=== PATIENT | male | born 1945 | race Asian ===

== ENCOUNTER 2019-12-01 11:55 | Inpatient (IN) | payer MEDICAID ==
[~2019-12-01] VITALS: Ht 160 cm; Wt 59.1 kg
[2019-12-01] MEDS ORDERED: 0.9% SODIUM CHLORIDE 10 ML SYRINGE IVP PRN ×3 (13:30→22:00)
[2019-12-01] MEDS ORDERED: PIPERACILLIN/TAZO 3.375 GM/D5W 50 ML IV ONE (13:30)
[2019-12-01] MEDS ORDERED: VANCOMYCIN HCL 1 GM/D5% WATER 200 ML IV ONE (13:30)
[2019-12-01 13:37] LABS: BASOPHILS % (AUTO) 0.8 % (0.0-2.0); EOSINOPHILS % (AUTO) 2.7 % (1.0-6.0); HEMATOCRIT 38.9 % (41-53); HEMOGLOBIN 13.1 g/dL (13.5-17.5); LYMPHOCYTES # (AUTO) 2.3 K/uL (1.0-4.8); LYMPHOCYTES % (AUTO) 29.1 % (22.0-44.0); MEAN CORPUSCULAR HEMOGLOBIN 29.1 pg (26.0-34.0); MEAN CORPUSCULAR HGB CONC 33.6 G/dL (31.0-37.0); MEAN CORPUSCULAR VOLUME 87 fL (80-100); MONOCYTES # (AUTO) 0.9 K/uL (0.1-1.0); NEUTROPHILS # (AUTO) 4.3 K/uL (1.8-7.7); NEUTROPHILS % (AUTO) 55.4 % (40.0-70.0); PLATELET COUNT (AUTO) 275 K/uL (150-450); RED BLOOD CELL COUNT(AUTO) 4.49 MIL/uL (4.50-5.90); RED CELL DISTRIBUTION WIDTH 13.4 % (11.5-14.5)
[2019-12-01 13:51] LABS: ANION GAP 4 mmol/L (8-16); CALCIUM, TOTAL 9.5 mg/dL (8.8-10.5); CARBON DIOXIDE 31 mmol/L (22-29); CHLORIDE 98 mmol/L (98-107); CREATININE 1.13 mg/dL (0.60-1.30); GLOMERULAR FILTR. RATE CALC > 60 mL/min (>60); GLUCOSE,RANDOM 355 mg/dL (70-110); POTASSIUM 4.3 mmol/L (3.5-5.1); SODIUM SERUM 133 mmol/L (136-145); UREA NITROGEN, BLOOD 17 mg/dL (7-18)
[2019-12-01 13:57] LABS: ALANINE AMINOTRANSFERASE 22 U/L (12-78); ALBUMIN 3.4 g/dL (3.4-5.0); ALKALINE PHOSPHATASE 77 U/L (46-116); ASPARTATE AMINOTRANSFERASE 12 U/L (15-37); BILIRUBIN,TOTAL 0.3 mg/dL (0.1-1.0); TOTAL PROTEIN, SERUM 8.3 g/dL (6.4-8.2)
[2019-12-01] MEDS ORDERED: IOVERSOL 320 MG/ML 100 ML VIAL ONE (14:39)
[2019-12-01] MEDS ORDERED: SODIUM CHLORIDE 0.9% 100 ML ONE (14:39)
[2019-12-01] MEDS ORDERED: SODIUM CHLORIDE 0.9% 1,000 ML IV ONE (15:00)
[2019-12-01] MEDS ORDERED: ACETAMINOPHEN 325 MG TABLET PO PRN ×2 (18:15→22:00)
[2019-12-01] MEDS ORDERED: OxyCODONE HCL/ACETAMINOPHEN 5-325 MG TABLET PO PRN (18:15)
[2019-12-01] MEDS ORDERED: HYDROCODONE/ACETAMINOPHEN 5-325 MG TABLET PO PRN (18:15)
[2019-12-01] MEDS ORDERED: ONDANSETRON HCL 4 MG/2 ML VIAL IVP PRN (22:00)
[2019-12-01] MEDS ORDERED: ZOLPIDEM TARTRATE 5 MG TABLET PO PRN (22:00)
[2019-12-01 22:04] VITALS: BP 139/90
[2019-12-01] MEDS ORDERED: SODIUM CHLORIDE 0.9% 500 ML IV ONE (22:27)
[2019-12-01] MEDS ORDERED: PNEUMOCOCCAL VACCINE POLYVALENT 0.5 ML VIAL [PPSV23] IM ONE (22:30)
[2019-12-01] MEDS ORDERED: INFLUENZA VIRUS VACCINE QVS 2019-20 (3YR+)/PF 60 MCG/0.5 ML SYRINGE IM ONE (22:30)
[2019-12-01] MEDS: DOCUSATE SODIUM 100 MG CAPSULE PO SCH (23:28)
[2019-12-01] MEDS: PIPERACILLIN/TAZO 3.375 GM/D5W 50 ML IV SCH (23:28)
[2019-12-01 23:40] VITALS: BP 127/71
[2019-12-02 04:16] VITALS: BP 132/71
[2019-12-02] MEDS: PIPERACILLIN/TAZO 3.375 GM/D5W 50 ML IV SCH ×4 (05:21→22:52)
[2019-12-02] MEDS: VANCOMYCIN HCL 500 MG in DEXTROSE 5%-WATER 100 ML IV SCH ×2 (06:11→21:38)
[2019-12-02 06:30] LABS: BASOPHILS % (AUTO) 0.9 % (0.0-2.0); EOSINOPHILS % (AUTO) 3.2 % (1.0-6.0); HEMATOCRIT 37.5 % (41-53); HEMOGLOBIN 12.5 g/dL (13.5-17.5); LYMPHOCYTES # (AUTO) 1.2 K/uL (1.0-4.8); LYMPHOCYTES % (AUTO) 18.7 % (22.0-44.0); MEAN CORPUSCULAR HGB CONC 33.3 G/dL (31.0-37.0); MEAN CORPUSCULAR VOLUME 87 fL (80-100); MONOCYTES # (AUTO) 0.7 K/uL (0.1-1.0); MONOCYTES % (AUTO) 10.1 % (2.0-9.0); NEUTROPHILS # (AUTO) 4.4 K/uL (1.8-7.7); NEUTROPHILS % (AUTO) 67.1 % (40.0-70.0); PLATELET COUNT (AUTO) 274 K/uL (150-450); RED BLOOD CELL COUNT(AUTO) 4.31 MIL/uL (4.50-5.90); RED CELL DISTRIBUTION WIDTH 13.3 % (11.5-14.5)
[2019-12-02 06:51] LABS: ALANINE AMINOTRANSFERASE 21 U/L (12-78); ALBUMIN 2.8 g/dL (3.4-5.0); ALKALINE PHOSPHATASE 69 U/L (46-116); ANION GAP 6 mmol/L (8-16); ASPARTATE AMINOTRANSFERASE 13 U/L (15-37); BILIRUBIN,TOTAL 0.4 mg/dL (0.1-1.0); CALCIUM, TOTAL 8.7 mg/dL (8.8-10.5); CARBON DIOXIDE 30 mmol/L (22-29); CHLORIDE 100 mmol/L (98-107); CREATININE 1.14 mg/dL (0.60-1.30); POTASSIUM 4.7 mmol/L (3.5-5.1); SODIUM SERUM 136 mmol/L (136-145); TOTAL PROTEIN, SERUM 7.2 g/dL (6.4-8.2); UREA NITROGEN, BLOOD 18 mg/dL (7-18)
[2019-12-02 07:02] LABS: GLOMERULAR FILTR. RATE CALC > 60 mL/min (>60); GLUCOSE,RANDOM 450 mg/dL (70-110)
[2019-12-02 07:53] VITALS: BP 140/72
[2019-12-02 07:53] LABS: GLUCOMETER DEV NAME(LOC) 4E.2; GLUCOSE,POINT OF CARE 461 MG/DL (70-110)
[2019-12-02] MEDS ORDERED: DEXTROSE 50%-WATER 25 GM/50 ML SYRINGE IVP PRN (08:00)
[2019-12-02] MEDS: DOCUSATE SODIUM 100 MG CAPSULE PO SCH ×2 (08:02→21:38)
[2019-12-02] MEDS: PANTOPRAZOLE SODIUM 40 MG DR TABLET PO SCH (08:02)
[2019-12-02] MEDS: INSULIN LISPRO 100 UNITS/ML SQ PRN ×3 (08:08→21:53)
[2019-12-02] MEDS: MORPHINE SULFATE 2 MG/ML SYRINGE IVP PRN (10:57)
[2019-12-02 11:09] VITALS: BP 137/73
[2019-12-02 11:27] LABS: GLUCOMETER DEV NAME(LOC) 6N.1; GLUCOSE,POINT OF CARE 111 MG/DL (70-110)
[2019-12-02 17:53] LABS: GLUCOMETER DEV NAME(LOC) 4E.2; GLUCOSE,POINT OF CARE 281 MG/DL (70-110)
[2019-12-02 20:23] VITALS: BP 122/73
[2019-12-02 22:47] LABS: GLUCOMETER DEV NAME(LOC) 4E.2; GLUCOSE,POINT OF CARE 276 MG/DL (70-110)
[2019-12-03] VITALS (7 sets, daily range): BP systolic 115–153; BP diastolic 72–83
[2019-12-03] MEDS: PIPERACILLIN/TAZO 3.375 GM/D5W 50 ML IV SCH ×4 (04:08→22:30)
[2019-12-03] MEDS: INSULIN LISPRO 100 UNITS/ML SQ PRN ×4 (06:51→21:01)
[2019-12-03 07:32] LABS: ANION GAP 9 mmol/L (8-16); CALCIUM, TOTAL 9.1 mg/dL (8.8-10.5); CARBON DIOXIDE 30 mmol/L (22-29); CHLORIDE 102 mmol/L (98-107); CREATININE 1.05 mg/dL (0.60-1.30); GLUCOSE,RANDOM 141 mg/dL (70-110); POTASSIUM 4.6 mmol/L (3.5-5.1); SODIUM SERUM 141 mmol/L (136-145); UREA NITROGEN, BLOOD 15 mg/dL (7-18)
[2019-12-03 07:35] LABS: GLUCOMETER DEV NAME(LOC) 6N.1; GLUCOSE,POINT OF CARE 133 MG/DL (70-110)
[2019-12-03 07:38] LABS: GLOMERULAR FILTR. RATE CALC > 60 mL/min (>60)
[2019-12-03] MEDS: VANCOMYCIN HCL 500 MG in DEXTROSE 5%-WATER 100 ML IV SCH ×3 (08:51→23:09)
[2019-12-03] MEDS: PANTOPRAZOLE SODIUM 40 MG DR TABLET PO SCH (08:51)
[2019-12-03] MEDS: MULTIVITAMINS WITH MINERALS, THERAPEUTIC TABLET PO SCH (08:51)
[2019-12-03] MEDS: DOCUSATE SODIUM 100 MG CAPSULE PO SCH ×2 (08:53→21:00)
[2019-12-03] MEDS: MORPHINE SULFATE 2 MG/ML SYRINGE IVP PRN (10:37)
[2019-12-03 12:18] LABS: GLUCOMETER DEV NAME(LOC) 4E.2; GLUCOSE,POINT OF CARE 338 MG/DL (70-110)
[2019-12-03 17:57] LABS: GLUCOMETER DEV NAME(LOC) 4E.2; GLUCOSE,POINT OF CARE 186 MG/DL (70-110)
[2019-12-03 22:08] LABS: GLUCOMETER DEV NAME(LOC) 6N.1; GLUCOSE,POINT OF CARE 341 MG/DL (70-110)
[2019-12-04] MEDS: PIPERACILLIN/TAZO 3.375 GM/D5W 50 ML IV SCH ×4 (04:53→22:49)
[2019-12-04 05:30] VITALS: BP 123/67
[2019-12-04] MEDS: INSULIN LISPRO 100 UNITS/ML SQ PRN ×4 (06:22→21:14)
[2019-12-04 07:46] LABS: CALCIUM, TOTAL 9.5 mg/dL (8.8-10.5); CREATININE 1.28 mg/dL (0.60-1.30); POTASSIUM 3.9 mmol/L (3.5-5.1)
[2019-12-04 08:54] VITALS: BP 155/88
[2019-12-04] MEDS: PANTOPRAZOLE SODIUM 40 MG DR TABLET PO SCH (09:41)
[2019-12-04] MEDS: VANCOMYCIN HCL 500 MG in DEXTROSE 5%-WATER 100 ML IV SCH ×3 (09:41→23:51)
[2019-12-04] MEDS: MULTIVITAMINS WITH MINERALS, THERAPEUTIC TABLET PO SCH (09:41)
[2019-12-04] MEDS: DOCUSATE SODIUM 100 MG CAPSULE PO SCH ×2 (09:41→20:03)
[2019-12-04 11:37] LABS: GLUCOMETER DEV NAME(LOC) 4E.2; GLUCOSE,POINT OF CARE 285 MG/DL (70-110)
[2019-12-04 11:37] LABS: GLUCOMETER DEV NAME(LOC) 6N.1; GLUCOSE,POINT OF CARE 132 MG/DL (70-110)
[2019-12-04] MEDS ORDERED: PROPOFOL 1% 20 ML VIAL IVP ONE (12:00)
[2019-12-04] MEDS ORDERED: LIDOCAINE/PF 2% 5 ML SYRINGE IVP ONE (12:00)
[2019-12-04] MEDS ORDERED: FentaNYL CITRATE-PF 100 MCG/2 ML VIAL IVP ONE (12:00)
[2019-12-04] MEDS ORDERED: RINGERS SOLUTION,LACTATED 1,000 ML IV ONE (15:03)
[2019-12-04] MEDS ORDERED: LIDOCAINE 2%/EPI 1:200,000/PF 20 ML VIAL ONE (15:08)
[2019-12-04] MEDS ORDERED: BUPIVACAINE HCL/PF 0.5% 30 ML VIAL ONE (15:08)
[2019-12-04] MEDS ORDERED: IBUPROFEN 800 MG TABLET PO PRN (15:45)
[2019-12-04] MEDS ORDERED: ACETAMINOPHEN 500 MG TABLET PO PRN (15:45)
[2019-12-04] MEDS ORDERED: MEPERIDINE-PF 25 MG/ML VIAL IVP PRN (15:45)
[2019-12-04] MEDS ORDERED: FentaNYL CITRATE-PF 100 MCG/2 ML VIAL IVP PRN (15:45)
[2019-12-04] MEDS ORDERED: HYDROmorphone 2 MG/ML SYRINGE IVP PRN (15:45)
[2019-12-04 16:55] VITALS: BP 145/80
[2019-12-04 18:37] LABS: GLUCOMETER DEV NAME(LOC) 6N.1; GLUCOSE,POINT OF CARE 213 MG/DL (70-110)
[2019-12-04 19:00] VITALS: BP 128/79
[2019-12-04] MEDS: OXYGEN THERAPY IH SCH (20:00)
[2019-12-04] MEDS: MORPHINE SULFATE 2 MG/ML SYRINGE IVP PRN (20:02)
[2019-12-04 22:18] LABS: GLUCOMETER DEV NAME(LOC) 4E.2; GLUCOSE,POINT OF CARE 248 MG/DL (70-110)
[2019-12-04 23:40] VITALS: BP 111/65
[2019-12-05 04:00] VITALS: BP 124/70
[2019-12-05] MEDS: PIPERACILLIN/TAZO 3.375 GM/D5W 50 ML IV SCH ×4 (05:13→22:18)
[2019-12-05] MEDS: HYDROCODONE/ACETAMINOPHEN 5-325 MG TABLET PO PRN ×3 (05:16→17:29)
[2019-12-05 06:20] LABS: BASOPHILS % (AUTO) 1.4 % (0.0-2.0); EOSINOPHILS % (AUTO) 4.4 % (1.0-6.0); HEMATOCRIT 35.2 % (41-53); HEMOGLOBIN 11.7 g/dL (13.5-17.5); LYMPHOCYTES # (AUTO) 1.9 K/uL (1.0-4.8); LYMPHOCYTES % (AUTO) 30.8 % (22.0-44.0); MEAN CORPUSCULAR HGB CONC 33.4 G/dL (31.0-37.0); MEAN CORPUSCULAR VOLUME 87 fL (80-100); MONOCYTES # (AUTO) 0.7 K/uL (0.1-1.0); MONOCYTES % (AUTO) 11.3 % (2.0-9.0); NEUTROPHILS # (AUTO) 3.2 K/uL (1.8-7.7); NEUTROPHILS % (AUTO) 52.1 % (40.0-70.0); PLATELET COUNT (AUTO) 284 K/uL (150-450); RED BLOOD CELL COUNT(AUTO) 4.05 MIL/uL (4.50-5.90); RED CELL DISTRIBUTION WIDTH 13.7 % (11.5-14.5)
[2019-12-05] MEDS: INSULIN LISPRO 100 UNITS/ML SQ PRN ×4 (06:24→20:41)
[2019-12-05 06:42] LABS: ANION GAP 7 mmol/L (8-16); CALCIUM, TOTAL 8.8 mg/dL (8.8-10.5); CARBON DIOXIDE 30 mmol/L (22-29); CHLORIDE 101 mmol/L (98-107); CREATININE 1.04 mg/dL (0.60-1.30); GLUCOSE,RANDOM 167 mg/dL (70-110); POTASSIUM 4.4 mmol/L (3.5-5.1); SODIUM SERUM 138 mmol/L (136-145); UREA NITROGEN, BLOOD 15 mg/dL (7-18)
[2019-12-05 06:51] LABS: GLOMERULAR FILTR. RATE CALC > 60 mL/min (>60)
[2019-12-05 07:49] LABS: GLUCOMETER DEV NAME(LOC) 6N.1; GLUCOSE,POINT OF CARE 170 MG/DL (70-110)
[2019-12-05 07:53] VITALS: BP 113/67
[2019-12-05] MEDS: OXYGEN THERAPY IH SCH (08:00)
[2019-12-05] MEDS: VANCOMYCIN HCL 500 MG in DEXTROSE 5%-WATER 100 ML IV SCH ×3 (08:49→23:42)
[2019-12-05] MEDS: MULTIVITAMINS WITH MINERALS, THERAPEUTIC TABLET PO SCH (08:50)
[2019-12-05] MEDS: DOCUSATE SODIUM 100 MG CAPSULE PO SCH ×2 (08:50→20:40)
[2019-12-05] MEDS: PANTOPRAZOLE SODIUM 40 MG DR TABLET PO SCH (08:51)
[2019-12-05 11:41] VITALS: BP 114/70
[2019-12-05 13:38] LABS: GLUCOMETER DEV NAME(LOC) 4E.2; GLUCOSE,POINT OF CARE 235 MG/DL (70-110)
[2019-12-05 15:58] VITALS: BP 100/60
[2019-12-05 18:21] LABS: GLUCOMETER DEV NAME(LOC) 4E.2; GLUCOSE,POINT OF CARE 198 MG/DL (70-110)
[2019-12-05 19:45] VITALS: BP 132/89
[2019-12-05 21:50] LABS: GLUCOMETER DEV NAME(LOC) 6N.1; GLUCOSE,POINT OF CARE 254 MG/DL (70-110)
[2019-12-05 23:40] VITALS: BP 105/64
[2019-12-06 04:42] VITALS: BP 134/72
[2019-12-06] MEDS: PIPERACILLIN/TAZO 3.375 GM/D5W 50 ML IV SCH ×2 (04:50→11:07)
[2019-12-06 06:15] LABS: CALCIUM, TOTAL 9.1 mg/dL (8.8-10.5); CREATININE 1.22 mg/dL (0.60-1.30); POTASSIUM 4.1 mmol/L (3.5-5.1)
[2019-12-06] MEDS: INSULIN LISPRO 100 UNITS/ML SQ PRN ×2 (06:17→12:28)
[2019-12-06 06:51] LABS: GLUCOMETER DEV NAME(LOC) 6N.1; GLUCOSE,POINT OF CARE 165 MG/DL (70-110)
[2019-12-06 07:56] VITALS: BP 119/71
[2019-12-06] MEDS: MULTIVITAMINS WITH MINERALS, THERAPEUTIC TABLET PO SCH (08:26)
[2019-12-06] MEDS: PANTOPRAZOLE SODIUM 40 MG DR TABLET PO SCH (08:26)
[2019-12-06] MEDS: VANCOMYCIN HCL 500 MG in DEXTROSE 5%-WATER 100 ML IV SCH (08:26)
[2019-12-06] MEDS: DOCUSATE SODIUM 100 MG CAPSULE PO SCH (08:26)
[2019-12-06] MEDS: MORPHINE SULFATE 2 MG/ML SYRINGE IVP PRN (11:08)
[2019-12-06 11:36] VITALS: BP 133/75
[2019-12-06 12:49] LABS: GLUCOMETER DEV NAME(LOC) 6N.1; GLUCOSE,POINT OF CARE 261 MG/DL (70-110)
[2019-12-06] MEDS ORDERED: CLIN300C3 PO (13:02)
[2019-12-06] MEDS ORDERED: IBUP-2077 PO (13:02)
== END 2019-12-06 16:20 | disposition home or self-care (01) | DRG 572 ==
LOC: EMS 11:56 → 4E 18:49
PROVIDERS: ADMIT Internal Medicine; ATTEND Internal Medicine
PROC: 0JBL0ZZ Excision of Right Upper Leg Subcutaneous Tissue and Fascia, Open Approach (ICD-10-PCS; principal; 2019-12-04 15:30)
DX: L02.415 Cutaneous abscess of right lower limb (principal); L03.115 Cellulitis of right lower limb; I10 Essential (primary) hypertension; Z87.891 Personal history of nicotine dependence; Z86.73 Personal history of transient ischemic attack (TIA), and cerebral infarction without residual deficits; B95.8 Unspecified staphylococcus as the cause of diseases classified elsewhere
CPT/HCPCS: 73701; 82947; 83605; 83735; 87040; 87070; 87205; 88304; G0378; J0690; J2270; J2543; J2704; J3010; J3370; J3490; J7030; J7040; J7050; J7060; J7120

== ENCOUNTER 2024-10-19 20:37 | Emergency (ER) | payer MEDICAID, OTHER ==
[~2024-10-19] VITALS: Ht 160 cm; Wt 52.3 kg
[~2024-10-19 20:37] MED LIST: CLIN300C58 PO; IBUP-2077 PO
[2024-10-19 20:41] VITALS: BP 124/69; PULSE 91; RESP 18; TEMP 97.6; O2SAT 99
[2024-10-19 21:23] LABS: BASOPHILS % (AUTO) 0.7 % (0.0-2.0); EOSINOPHILS % (AUTO) 1.6 % (1.0-6.0); HEMATOCRIT 32.5 % (41-53); HEMOGLOBIN 10.7 g/dL (13.5-17.5); LYMPHOCYTES % (AUTO) 34.3 % (22.0-44.0); MEAN CORPUSCULAR HGB CONC 32.8 G/dL (31.0-37.0); MEAN CORPUSCULAR VOLUME 91 fL (80-100); MONOCYTES # (AUTO) 0.7 K/uL (0.1-1.0); MONOCYTES % (AUTO) 12.6 % (2.0-9.0); NEUTROPHILS # (AUTO) 2.9 K/uL (1.8-7.7); NEUTROPHILS % (AUTO) 50.8 % (40.0-70.0); PLATELET COUNT (AUTO) 172 K/uL (150-450); RED BLOOD CELL COUNT(AUTO) 3.56 MIL/uL (4.50-5.90); RED CELL DISTRIBUTION WIDTH 14.1 % (11.5-14.5); WHITE BLOOD COUNT (AUTO) 5.7 K/uL (4.5-11.0)
[2024-10-19 21:33] LABS: CALCIUM, TOTAL 9.1 mg/dL (8.8-10.5); CREATININE 1.34 mg/dL (0.60-1.30); POTASSIUM 4.2 mmol/L (3.5-5.1)
[2024-10-19 21:39] LABS: ALBUMIN 3.7 g/dL (3.4-5.0); BILIRUBIN,DIRECT 0.1 mg/dL (0.00-0.20); BILIRUBIN,TOTAL 0.2 mg/dL (0.1-1.0); TOTAL PROTEIN, SERUM 7.2 g/dL (6.4-8.2)
[2024-10-19] MEDS: ACETAMINOPHEN 500 MG TABLET PO ONE (23:14)
[2024-10-19] MEDS: LIDOCAINE 1% 10 ML VIAL SQ ONE (23:15)
[2024-10-19] MEDS: BACITRACIN 0.9 GM PACKET OINTMENT TP ONE (23:15)
[2024-10-19] MEDS: PERTUSS(ACELL),DIPH,TET/PF 0.5 ML SYRINGE [ADULT] IM. ONE (23:17)
[2024-10-19] MEDS ORDERED: BACI28.410 TP (23:26)
[2024-10-19] MEDS ORDERED: ACET-66 PO (23:26)
== END 2024-10-19 23:45 | disposition home or self-care (01) ==
LOC: EMS 20:37
DX: S01.81XA Laceration without foreign body of other part of head, initial encounter (principal); E11.9 Type 2 diabetes mellitus without complications; I10 Essential (primary) hypertension; E78.00 Pure hypercholesterolemia, unspecified; Z87.891 Personal history of nicotine dependence; Z79.899 Other long term (current) drug therapy; W01.0XXA Fall on same level from slipping, tripping and stumbling without subsequent striking against object, initial encounter; Y93.89 Activity, other specified; Y92.89 Other specified places as the place of occurrence of the external cause; Y99.8 Other external cause status
CPT/HCPCS: 99285; 70450; 80048; 80076; 85025; 36415; 72125; 90715; 90471; 12013; G0480; J3490